=== PATIENT | female | born 1955 | race Caucasian/White ===

== ENCOUNTER → 2016-02-22 | Outpatient (CLI) | payer OTHER | LOC: RAD 15:26 | DX: Z12.31 Encounter for screening mammogram for malignant neoplasm of breast (principal) ==

== ENCOUNTER → 2017-03-05 | Outpatient (CLI) | payer OTHER | LOC: RAD 01:05 | DX: Z12.31 Encounter for screening mammogram for malignant neoplasm of breast (principal) ==

== ENCOUNTER → 2018-03-07 | Outpatient (CLI) | payer BC, OTHER | LOC: RAD 08:26 | DX: Z12.31 Encounter for screening mammogram for malignant neoplasm of breast (principal) ==

== ENCOUNTER → 2019-03-21 | Outpatient (CLI) | payer OTHER | LOC: RAD 08:15 | DX: Z12.31 Encounter for screening mammogram for malignant neoplasm of breast (principal) ==

== ENCOUNTER → 2020-03-22 | Outpatient (CLI) | payer OTHER | LOC: BC 08:40 | PROVIDERS: ATTEND Internal Medicine | DX: Z12.31 Encounter for screening mammogram for malignant neoplasm of breast (principal) ==

== ENCOUNTER → 2021-03-23 | Outpatient (CLI) | payer OTHER | LOC: BC 09:02 | PROVIDERS: ATTEND Internal Medicine | DX: Z12.31 Encounter for screening mammogram for malignant neoplasm of breast (principal) ==